=== PATIENT | male | born 1970 | race Caucasian/White ===

== ENCOUNTER 2017-08-08 08:47 | Day surgery (SDC) | payer OTHER ==
[~2017-08-08 08:47] MED LIST: RINGER'S SOLUTION,LACTATED 1,000 ML IV PRN; ceFAZolin SODIUM 1 GM VIAL IV PRN
[2017-08-08] MEDS ORDERED: CEPHALEXIN MONOHYDRATE 500 MG CAPSULE PO PRN (10:12)
[2017-08-08] MEDS ORDERED: BUPIVACAINE HCL 50 ML VIAL IJ ONE (10:30)
[2017-08-08] MEDS ORDERED: LIDOCAINE HCL 50 ML VIAL IJ ONE (10:33)
--- NOTE | 2017-08-08 10:55 | OR ---
Operative Report - Dictated Report Narrative: Date: 08/08/2017 Physician: Vlad Bowman M.D. Ciso: Noman Escamilla PA-C Preoperative diagnosis: Foreign body of right index finger Postoperative diagnosis: Retained wood splinter of right index finger Procedure: Removal of foreign body right index finger Anesthesia: Right index finger digital block with 0.5% Marcaine without epinephrine and 1% lidocaine without epinephrine Complications: None Estimated blood loss: None Tourniquet time: 12 Minutes at 250 mmHg Specimens: None Retained implants: None Drains: None Indications: Jose Is a 47 year-old male who was pushing open a car door when a large splinter from the door punctured his right index finger at the radial volar aspect of the proximal phalanx. He was able to remove a portion of the splinter and thought he had gotten it all, however he continued to have pain and swelling. He initially presented to his PCP who attempted an exploration of the wound but was unable to remove any additional foreign body. He was then referred to our office for further evaluation. An MRI was obtained to evaluate for any residual foreign body and this revealed a retained splinter approximately 2 x 9 mm in the volar soft tissue of the right index proximal phalanx. I counseled him that this needed to be taken out to prevent infection and ongoing pain and swelling of the finger. I discussed the risks and benefits with him including, but not limited to, infection, bleeding, neurovascular injury, persistent stiffness, persistent pain, wound complications , and need for additional procedures. After discussion he wished to proceed with surgery and informed consent was obtained in the clinic. Procedure: After marking the correct extremity in the preoperative holding area, a timeout was performed in the operating room. Oral antibiotics consisting of 500 mg of Keflex were administered prior to the procedure. A well-padded tourniquet was applied to the operative upper arm. The arm was exsanguinated and the tourniquet was inflated to 250 mmHg. A digital block was then performed using 0.5% Marcaine without epinephrine and an additional field block around the puncture wound was performed using 1% lidocaine without epinephrine. Using Loupe magnification, a longitudinal incision was made in line with previous puncture wound approximately 5 mm in length. Blunt dissection with tenotomy scissors was carried down into the subcutaneous tissue taking care to protect the neurovascular bundle and the splinter was immediately identified and removed from the wound. There was a small amount of cloudy fluid surrounding the splinter but no gross purulence. The wound was then copiously irrigated with normal saline. The wound was closed with interrupted 4-0 nylon. Xeroform , 4 x 4's, and 2 inch Radha was applied. The patient was transferred to the post-anesthesia care unit in stable condition. All sponge, needle, blade, and instrument counts were correct prior to closing the wounds.
[2017-08-08 13:49] VITALS: BP 149/100
== END 2017-08-08 08:48 | disposition home or self-care (01) ==
LOC: AMB 08:47
PROVIDERS: ATTEND Orthopaedic Surgery
PROC: 0JCJ0ZZ Extirpation of Matter from Right Hand Subcutaneous Tissue and Fascia, Open Approach (ICD-10-PCS; principal; 2017-08-08 09:00)
DX: S61.240D Puncture wound with foreign body of right index finger without damage to nail, subsequent encounter (principal); J45.909 Unspecified asthma, uncomplicated; F17.210 Nicotine dependence, cigarettes, uncomplicated; Z68.33 Body mass index [BMI] 33.0-33.9, adult; W45.8XXD Other foreign body or object entering through skin, subsequent encounter